=== PATIENT | female | born 1950 | race Caucasian/White ===

== ENCOUNTER 2016-04-19 12:07 | Observation (INO) | payer MEDICARE ==
[2016-04-19 13:08] VITALS: BMI 28.9
[2016-04-19 13:21] LABS: ALL NEG? NO
[2016-04-19 13:25] LABS: AUTOMATED BASOPHIL 0.7 % (0-2); AUTOMATED EOSINOPHIL 0.4 % (0-5); AUTOMATED LYMPH 21.7 % (17-44); AUTOMATED MONOCYTE 4.7 % (3-10); AUTOMATED NEUTROPHIL 72.5 % (45-76); MPV 6.9 fL (7.4-10.4)
[2016-04-19 13:26] LABS: LEUKOCYTES/URINE NEG (NEGATIVE); NITRITE/URINE NEG (NEGATIVE); RBC/URINE 0-2 (0-5); URINE OCCULT BLOOD NEG (NEG/TRACE); WBC/URINE 0-2 (0-5)
[2016-04-19 13:35] LABS: BLOOD UREA NITROGEN 15 MG/DL (7-17); CALCIUM 10.5 MG/DL (8.4-10.2); CALCULATED OSMOLALITY 270 MOs/Kg (270-290); CHLORIDE 104 mEq/L (98-107); ETOH-MGDL < 10 mg/dL; GLUCOSE 105 MG/DL (70-99); SODIUM LEVEL 140 mEq/L (137-146); TOTAL PROTEIN 7.4 G/DL (6.3-8.2)
[2016-04-19 13:43] LABS: MDMA* NEG (NEGATIVE); METHAMPHETAMINES NEG (NEGATIVE); OXYCODONE NEG (NEGATIVE)
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
[2016-04-19] MEDS ORDERED: TRAMADOL HCL 50 MG TAB PO PRN (16:04)
[2016-04-19] MEDS ORDERED: TEMAZEPAM 15 MG CAP PO SCH (21:00)
[2016-04-19 23:05] VITALS: BP 162/96; PULSE 73; TEMP 98.4
== END 2016-04-19 22:37 | disposition home or self-care (01) ==
LOC: ED 12:07 → TUOBSINP 16:04
PROVIDERS: ADMIT Emergency Medicine; ATTEND Emergency Medicine
DX: F32.9 Major depressive disorder, single episode, unspecified (principal)
CPT/HCPCS: 36415; 80053; 80307; 81001; 85025; 86592; 99284; G0378; J3490